=== PATIENT | female | born 1945 | race Caucasian/White ===

== ENCOUNTER 2020-06-15 12:01 | Emergency (ER) | payer MEDICARE ==
[~2020-06-15] VITALS: Ht 160 cm; Wt 75.7 kg
[2020-06-15] MEDS ORDERED: CLEOCIN HCL150 MG PO (13:09)
== END 2020-06-15 13:30 | disposition home or self-care (01) ==
LOC: ER 12:38
DX: S61.211A Laceration without foreign body of left index finger without damage to nail, initial encounter (principal); W26.0XXA Contact with knife, initial encounter; Y92.008 Other place in unspecified non-institutional (private) residence as the place of occurrence of the external cause; I10 Essential (primary) hypertension
CPT/HCPCS: 99283